=== PATIENT | male | born 1985 | race Caucasian/White ===

== ENCOUNTER 2017-11-28 13:44 | Emergency (ER) | payer OTHER ==
[2017-11-28 13:58] VITALS: TEMP 97.6; BMI 34.1
[2017-11-28] MEDS ORDERED: SODIUM CHLORIDE 1,000 ML IV STA ×2 (14:05→15:42)
[2017-11-28] MEDS ORDERED: KETOROLAC TROMETHAMINE 30 MG/1 ML VIAL IVPUSH ONE (14:06)
--- NOTE | 2017-11-28 14:07 | PDOC ---
History of Present Illness - General Chief Complaint: Pain, Acute Stated Complaint: ABDOMINAL PAIN Time Seen by Provider: 11/28/17 14:00 History Source: Patient Exam Limitations: No Limitations - History of Present Illness Initial Comments: CHIEF COMPLAINT: 32 y/o afebrile male with no significant PMH c/o right sided abdominal pain with nausea and vomiting today. HISTORY OF PRESENT ILLNESS: The patient states the pain started out of nowhere at around 10am. It is a constant dull pain which increases in severity to sharp. He feels better if he moves around. He denies fever, chills, cough, hemoptysis, CP, SOB, back pain, hematuria, dysuria, diarrhea, constipation. He hasn't taken anything for pain. Vital signs on arrival are notable for pulse of 108. REVIEW OF SYSTEMS: GENERAL/CONSTITUTIONAL: No fever/chills. No weakness. No weight change. HEAD, EYES, EARS, NOSE AND THROAT: No change in vision. No ear pain or discharge. No sore throat. CARDIOVASCULAR: No chest pain or shortness of breath. RESPIRATORY: No cough, wheezing, or hemoptysis. GASTROINTESTINAL: +nausea, vomiting. +right sided abdominal pain. No diarrhea or constipation. GENITOURINARY: No dysuria, frequency, or change in urination. MUSCULOSKELETAL: No joint or muscle swelling or pain. No neck or back pain. SKIN: No rash or easy bruising. NEUROLOGIC: No headache, vertigo, loss of consciousness, or loss of sensation. PHYSICAL EXAM: GENERAL: The patient is awake, alert, and fully oriented, pacing back and forth in ER, unable to get comfortable. HEAD: Normal with no signs of trauma. ENT: Pupils equal, round and reactive to light, extraocular movements intact, sclera anicteric, conjunctiva clear. Neck supple. LUNGS: Clear to auscultation bilaterally. Normal excursion. No respiratory distress or use of accessory muscles. CV: RRR, S1/S2, no MRG. Cap refill < 2 sec. ABDOMEN: Right flank pain with palpation. Soft, non-distended, no Mcburney's point TTP. Negative Martinez's signs. No rebound, guarding. Negative Paulie sign. BACK: No CVA TTP b/l. EXTREMITIES: Normal range of motion, no edema. NEUROLOGICAL: Normal speech, normal gait. CN II-XII grossly intact. PSYCH: Normal mood, normal affect. SKIN: Warm, dry, normal turgor, no rashes or lesions noted. Past History - Past Medical History Allergies/Adverse Reactions: Allergies Allergy/AdvReac Type Severity Reaction Status Date / Time No Known Allergies Allergy Verified 11/28/17 13:55 Home Medications: Ambulatory Orders Phenazopyridine HCl [Pyridium -] 100 mg PO TID #6 tablet 11/28/17 Tamsulosin HCl [Flomax] 0.4 mg PO DAILY #3 capsule 11/28/17 COPD: No - Suicide/Smoking/Psychosocial Hx Smoking History: Never smoked *Physical Exam - Vital Signs Last Vital Signs Temp Pulse Resp BP Pulse Ox 97.6 F 79 24 112/98 100 11/28/17 13:55 11/28/17 13:55 11/28/17 13:55 11/28/17 13:55 11/28/17 13:55 ED Treatment Course - LABORATORY CBC & Chemistry Diagram: 11/28/17 14:24 11/28/17 14:24 Medical Decision Making - Medical Decision Making A/P: 32 y/o afebrile male with what appears to be kidney stone. Less likely appendicitis. Do not suspect pyelo. Plan is as follows: 1. Labs 2. UA/culture 3. IV fluids x 2 4. IV zofran and toradol 5. Spiral CT Toradol had no effect Gave patient morphine and he feels better. Spiral Ct IMPRESSION: 2.5mm obstructing stone at the right ureterovesical junction resulting in mild hydroureternephrosis and stranding of the right perinephric fat. No evidence of UTI. Patient and his given all results. Will d/c to home with instructions to drink The patient verbalizes understanding of all instructions, has no further questions and is awaiting discharge. *DC/Admit/Observation/Transfer Diagnosis at time of Disposition: Kidney stone on right side - Discharge Dispostion Disposition: HOME Condition at time of disposition: Improved - Referrals Referrals: Brandon De La Cruz MD [Staff Physician] - - Patient Instructions Printed Discharge Instructions: DI for Kidney Stones Additional Instructions: Discharge Instructions: -You had a 2.5mm kidney stone -2 prescriptions have been sent to your pharmacy; please take as prescribed; one of them will turn your urine orange -Drink plenty of fluids -If needed, you can take 600mg of over the counter Ibuprofen every 6 hours with food for pain -Follow up with Dr. De La Cruz within 2 weeks -Return to the ER with any worsening or concerning symptoms - Post Discharge Activity
[2017-11-28] MEDS ORDERED: KETOROLAC TROMETHAMINE 30 MG/1 ML VIAL ONE (14:09)
[2017-11-28] MEDS ORDERED: ONDANSETRON 4 MG/2 ML VIAL IVPUSH ONE (14:11)
[2017-11-28] MEDS ORDERED: morphine CARPU-JECT 4 MG/1 ML DISP.SYRIN IVPUSH ONE (14:38)
[2017-11-28] MEDS ORDERED: ONDANSETRON 4 MG/2 ML VIAL ONE (14:43)
[2017-11-28] MEDS ORDERED: MORPHINE SULFATE 2 MG/ML VIAL ONE ×2 (14:43→15:53)
[2017-11-28 14:45] LABS: BASO % 0.2 % (0-2.0); HEMATOCRIT 43.9 % (35.4-49); LYMPH % 9.5 % (8-40); MCH 28.8 pg (25.7-33.7); MCHC 34.3 g/dl (32.0-35.9); MEAN CELL VOLUME 83.9 fl (80-96); MEAN PLT VOLUME 9.8 fl (7.5-11.1); MONO % 3.6 % (3.8-10.2); NEUT % 86.7 % (42.8-82.8); PLATELET COUNT 318 K/MM3 (134-434); RBC 5.23 M/mm3 (4.00-5.60); WHITE BLOOD COUNT 15.2 K/mm3 (4.0-10.0)
[2017-11-28 15:14] LABS: ALBUMIN 4.7 g/dl (3.4-5.0); ALK PHOS 79 U/L (45-117); ANION GAP 14 (8-16); BILIRUBIN,TOTAL 0.6 mg/dL (0.2-1.0); BLOOD UREA NITROGEN 20 mg/dL (7-18); CHLORIDE 104 mmol/L (98-107); CO2 23 mmol/L (21-32); CREATININE 1.4 mg/dL (0.7-1.3); GLUCOSE,RANDOM 128 mg/dL (74-106); POTASSIUM 3.7 mmol/L (3.5-5.1); SGOT/AST 25 U/L (15-37); SGPT/ALT 37 U/L (12-78); SODIUM 141 mmol/L (136-145); TOT PROT 8.2 g/dl (6.4-8.2)
[2017-11-28] MEDS ORDERED: morphine CARPU-JECT 2 MG/1 ML DISP.SYRIN IVPUSH ONE (15:42)
[2017-11-28 17:41] LABS: URINE APPEARANCE CLEAR; URINE BILIRUBIN NEGATIVE (<2.0 mg/dL); URINE COLOR YELLOW; URINE GLUCOSE (UA) NEGATIVE (NEGATIVE); URINE KETONE 1+ (NEGATIVE); URINE LEUK ESTERASE NEGATIVE (NEGATIVE); URINE NITRITE NEGATIVE (NEGATIVE); URINE PROTEIN NEGATIVE (NEGATIVE); URINE UROBILINOGEN NEGATIVE mg/dL (0.2-1.0)
[2017-11-28 17:52] LABS: URINE MUCUS MANY
[2017-11-28 18:33] VITALS: BP 121/77; PULSE 86
== END 2017-11-28 18:32 | disposition home or self-care (01) ==
LOC: JER 13:44
PROC: 3E0333Z Introduction of Anti-inflammatory into Peripheral Vein, Percutaneous Approach (ICD-10-PCS; principal; 2017-11-28)
PROC: 3E033NZ Introduction of Analgesics, Hypnotics, Sedatives into Peripheral Vein, Percutaneous Approach (ICD-10-PCS; 2017-11-28)
PROC: 3E033GC Introduction of Other Therapeutic Substance into Peripheral Vein, Percutaneous Approach (ICD-10-PCS; 2017-11-28)
PROC: 3E0337Z Introduction of Electrolytic and Water Balance Substance into Peripheral Vein, Percutaneous Approach (ICD-10-PCS; 2017-11-28)
DX: N20.0 Calculus of kidney (principal)
CPT/HCPCS: 36415; 74176; 80053; 81003; 81015; 85025; 87086; 99281-25; J7030